=== PATIENT | female | born 1975 | race Caucasian/White ===

== ENCOUNTER 2017-06-15 17:04 | Emergency (ER) | payer SELFPAY ==
[~2017-06-15] VITALS: Ht 165.1 cm; Wt 83.9 kg
[2017-06-15] MEDS ORDERED: TETANUS/DIPHTHERIA TOX ADULT 0.5 ML SYR IM ONE (17:15)
[2017-06-15] MEDS ORDERED: LIDOCAINE HCL 2% LOCAL 20 ML VIAL INJ ONE (17:15)
[2017-06-15] MEDS ORDERED: HYDROCODONE/APAP 10MG-325MG TAB PO ONE (17:15)
[2017-06-15] MEDS ORDERED: LIDOCAINE HCL 1% LOCAL INJ 20 ML VIAL ONE (17:19)
[2017-06-15 17:49] VITALS: BP 133/94
== END 2017-06-15 18:13 | disposition home or self-care (01) ==
LOC: ER 17:04
DX: S91.111A Laceration without foreign body of right great toe without damage to nail, initial encounter (principal); S91.114A Laceration without foreign body of right lesser toe(s) without damage to nail, initial encounter; W45.8XXA Other foreign body or object entering through skin, initial encounter; Y92.008 Other place in unspecified non-institutional (private) residence as the place of occurrence of the external cause
CPT/HCPCS: 12002; 90471; 90714; 99283; J2001 ×2

== ENCOUNTER 2020-03-23 10:41 | Emergency (ER) | payer OTHER ==
[~2020-03-23] VITALS: Ht 165.1 cm; Wt 78.5 kg
[2020-03-23] MEDS ORDERED: CYCLOBENZAPRINE10 MG PO (11:13)
[2020-03-24] MEDS ORDERED: PROTONIX20 MG PO (18:23)
[2020-03-24] MEDS ORDERED: CYCLOBENZAPRINE5 MG PO (23:15)
== END 2020-03-23 12:03 | disposition home or self-care (01) ==
LOC: ER 11:18
DX: M54.2 Cervicalgia (principal); M62.838 Other muscle spasm; K21.9 Gastro-esophageal reflux disease without esophagitis; Z98.84 Bariatric surgery status
CPT/HCPCS: 99283

== ENCOUNTER 2020-03-24 10:50 | Observation (INO) | payer OTHER ==
[~2020-03-24] VITALS: Ht 167.6 cm; Wt 78.5 kg
[~2020-03-24 10:50] MED LIST: CYCLOBENZAPRINE10 MG PO
[2020-03-24] MEDS ORDERED: FENTANYL CITRATE/PF 100MCG/2 ML INJ IV ONE (11:45)
[2020-03-24 12:27] LABS: BASOPHILS % 0.7 % (0.0-1.0); EOSINOPHILS % 0.3 % (0.0-6.0); HEMATOCRIT 36.9 % (34.2-44.1); HEMOGLOBIN 12.1 g/dL (12.0-16.0); LYMPHOCYTES # (AUTO) 1.3 (1.0-3.2); LYMPHOCYTES % 21.3 % (18.0-39.1); MEAN CORPUSCULAR HEMOGLOBIN 31.1 pg (28-32); MEAN CORPUSCULAR HGB CONC 32.8 g/dL (31-35); MEAN CORPUSCULAR VOLUME 94.9 fL (81-99); MONOCYTES # (AUTO) 0.3 (0.2-0.8); MONOCYTES % 4.6 % (4.4-11.3); NEUTROPHILS # (AUTO) 4.3 (2.1-6.9); NEUTROPHILS % 72.4 % (38.7-80.0); PLATELET COUNT 287 x10e3/uL (140-360); RED BLOOD COUNT 3.89 x10e6/uL (3.6-5.1); RED CELL DISTRIBUTION WIDTH 12.7 % (11.7-14.4)
[2020-03-24 12:30] LABS: CLARITY,URINE CLEAR (CLEAR); COLOR,URINE YELLOW (YELLOW); EPITHELIAL CELLS,URINE RARE /LPF; KETONES,URINE NEGATIVE (NEGATIVE); LEUKOCYTE ESTERASE ,URINE NEGATIVE (NEGATIVE); NITRITE,URINE NEGATIVE (NEGATIVE); PROTEIN,URINE DIPSTICK NEGATIVE (NEGATIVE); RBC,URINE 0-5 /HPF (0-5); URINE UROBILINOGEN 0.2 mg/dL (0.2 - 1); WBC,URINE (MAN) 0-5 /HPF (0-5)
[2020-03-24 12:46] LABS: ALANINE AMINOTRANSFERASE 21 IU/L (0-55); ALBUMIN 3.9 g/dL (3.5-5.0); ALBUMIN/GLOBULIN RATIO 1.6 (0.8-2.0); ALKALINE PHOSPHATASE 34 IU/L (40-150); ANION GAP 12.8 mmol/L (8-16); BLOOD UREA NITROGEN 18 mg/dL (7-26); BUN/CREATININE RATIO 18 (6-25); CALCIUM 8.6 mg/dL (8.4-10.2); CARBON DIOXIDE 25 mmol/L (22-29); CHLORIDE 104 mmol/L (98-107); CREATININE, SERUM 0.99 mg/dL (0.57-1.11); EST GLOMERULAR FILTRATION RATE > 60 ML/MIN (60-); GLUCOSE 118 mg/dL (74-118); POTASSIUM 3.8 mmol/L (3.5-5.1); SODIUM 138 mmol/L (136-145)
[2020-03-24] MEDS ORDERED: MORPHINE SULFATE INJ 2 MG/ML SYR IV PRN (15:00)
[2020-03-24] MEDS ORDERED: IOPAMIDOL 370 MG/ML 200 ML INFUS..BTL INJ ONE (15:36)
[2020-03-24] MEDS ORDERED: SODIUM CHLORIDE 0.9% 50ML 50 ML ONE (15:36)
[2020-03-24] MEDS: MORPHINE SULFATE INJ 4 MG/ML INJ 1ML IV PRN ×2 (15:42→19:43)
[2020-03-24] MEDS: ONDANSETRON HCL INJ 2MG/ML 2ML 2 MG/ML VIAL IV PRN ×2 (15:45→19:53)
[2020-03-24 17:50] VITALS: BP 155/96
[2020-03-24 18:15] VITALS: BP 155/96
[2020-03-24] MEDS ORDERED: PROTONIX20 MG PO (18:23)
[2020-03-24 19:47] VITALS: BP 134/72
[2020-03-24 20:00] VITALS: BP 134/72
[2020-03-24] MEDS ORDERED: CYCLOBENZAPRINE5 MG PO (23:15)
[2020-03-24 23:20] VITALS: BP 136/89
[2020-03-25] VITALS (7 sets, daily range): BP systolic 103–138; BP diastolic 70–85
[2020-03-25] MEDS: ONDANSETRON HCL INJ 2MG/ML 2ML 2 MG/ML VIAL IV PRN ×4 (00:08→20:28)
[2020-03-25] MEDS: MORPHINE SULFATE INJ 4 MG/ML INJ 1ML IV PRN (00:16)
[2020-03-25] MEDS: HYDROMORPHONE 1MG/1ML INJ IV PRN ×3 (03:30→12:36)
[2020-03-25] MEDS: CYCLOBENZAPRINE HCL 10 MG TAB PO PRN (16:28)
[2020-03-25] MEDS: DOCUSATE SODIUM 100 MG CAP PO PRN (16:28)
[2020-03-25] MEDS ORDERED: ACETAMINOPHEN 325 MG TAB PO PRN (19:45)
[2020-03-25] MEDS ORDERED: MORPHINE SULFATE INJ 2 MG/ML SYR IV PRN (19:45)
[2020-03-25] MEDS ORDERED: HYDRALAZINE HCL 20 MG/ML VIAL IV PRN (19:45)
[2020-03-25] MEDS: GABAPENTIN 300 MG CAP PO SCH (20:28)
[2020-03-25] MEDS: MORPHINE SULFATE INJ 2 MG/ML SYR IV PRN (20:28)
[2020-03-25] MEDS: HYDROCODONE/APAP 5MG-325MG TAB PO PRN (23:12)
[2020-03-26] VITALS: BP 112/61
[2020-03-26] MEDS: CYCLOBENZAPRINE HCL 10 MG TAB PO PRN (00:47)
[2020-03-26] MEDS: ONDANSETRON HCL INJ 2MG/ML 2ML 2 MG/ML VIAL IV PRN ×2 (03:10→09:34)
[2020-03-26] MEDS: MORPHINE SULFATE INJ 2 MG/ML SYR IV PRN ×2 (03:10→09:34)
[2020-03-26 03:24] LABS: BASOPHILS % 0.7 % (0.0-1.0); EOSINOPHILS # (AUTO) 0.1 (0.0-0.4); HEMATOCRIT 38.1 % (34.2-44.1); HEMOGLOBIN 12.5 g/dL (12.0-16.0); LYMPHOCYTES # (AUTO) 2.5 (1.0-3.2); LYMPHOCYTES % 42.9 % (18.0-39.1); MEAN CORPUSCULAR HEMOGLOBIN 31.2 pg (28-32); MEAN CORPUSCULAR HGB CONC 32.8 g/dL (31-35); MONOCYTES # (AUTO) 0.4 (0.2-0.8); MONOCYTES % 6.6 % (4.4-11.3); NEUTROPHILS # (AUTO) 2.8 (2.1-6.9); NEUTROPHILS % 48.1 % (38.7-80.0); PLATELET COUNT 283 x10e3/uL (140-360); RED BLOOD COUNT 4.01 x10e6/uL (3.6-5.1); RED CELL DISTRIBUTION WIDTH 12.7 % (11.7-14.4)
[2020-03-26 03:53] LABS: ALBUMIN 3.4 g/dL (3.5-5.0); ALBUMIN/GLOBULIN RATIO 1.3 (0.8-2.0); ANION GAP 13.4 mmol/L (8-16); CALCIUM 8.2 mg/dL (8.4-10.2); CREATININE, SERUM 1.01 mg/dL (0.57-1.11); POTASSIUM 4.4 mmol/L (3.5-5.1)
[2020-03-26 04:00] VITALS: BP 102/67
[2020-03-26] MEDS: HYDROCODONE/APAP 5MG-325MG TAB PO PRN (06:18)
[2020-03-26] MEDS ORDERED: PANTOPRAZOLE SOD 40 MG TABEC PO SCH (07:30)
[2020-03-26 07:39] VITALS: BP 152/94
[2020-03-26 07:53] VITALS: BP 152/94
[2020-03-26] MEDS: GABAPENTIN 300 MG CAP PO SCH ×2 (08:15→18:23)
[2020-03-26] MEDS: DOCUSATE SODIUM 100 MG CAP PO PRN (08:28)
[2020-03-26 11:18] VITALS: BP 123/74
[2020-03-26] MEDS: HYDROMORPHONE 1MG/1ML INJ IV PRN ×2 (12:34→18:23)
[2020-03-26 15:40] VITALS: BP 111/68
== END 2020-03-26 18:37 | disposition home or self-care (01) ==
LOC: ER 10:54 → ERHOLD 15:03 → MED/SURG 17:50
PROVIDERS: ADMIT Internal Medicine; ATTEND Internal Medicine
DX: M48.02 Spinal stenosis, cervical region (principal); M54.2 Cervicalgia; K21.9 Gastro-esophageal reflux disease without esophagitis; Z20.828 Contact with and (suspected) exposure to other viral communicable diseases; Z88.1 Allergy status to other antibiotic agents; Z88.0 Allergy status to penicillin; Z88.2 Allergy status to sulfonamides
CPT/HCPCS: 36415 ×2; 70450; 70491; 71260; 72141; 80053 ×2; 81001; 83690; 84484; 84702; 85025 ×2; 97161; 99284; G0378 ×3; J1170 ×2; J2270 ×4; J2405 ×3; J3010; Q9967; S0164; U0002